=== PATIENT | male | born 1980 | race Caucasian/White ===

== ENCOUNTER 2017-02-04 10:07 | Emergency (ER) | payer OTHER ==
--- NOTE | ~2017-02-04 | EKG ---
PATIENT: JENNIFER PEREZ UNIT #: [id number] Ventricular Rate: 58 BPM Atrial Rate: 59 BPM P-R Interval: 150 ms QRS Duration: 94 ms Q-T Interval: 370 ms QTC Calculation(Bezet): 363 ms P [place]: 30 degrees Calculated R [place]: 17 degrees Calculated T [place]: 19 degrees Diagnosis Line: Sinus bradycardia Diagnosis Line: Otherwise normal ECG Diagnosis Line: No previous ECGs available Diagnosis Line: Confirmed by GREY SEVERINO MD ([id number]) on Diagnosis Line: 02/04/2017 9:36:26 PM INTERPRETING MD: GAIL
[~2017-02-04 10:07] MED LIST: FLEXERIL10 MG PO; MOTRIN600 MG PO; PAXIL PO; PREDNISONE10 MG/DOSE PO
[2017-02-04 10:43] LABS: ACETAMINOPHEN 17 ug/mL; ALKALINE PHOSPHATASE 43 U/L (32-92); ALT (SGPT) 26 U/L (10-40); AST (SGOT) 25 U/L (10-42); BILIRUBIN, DIRECT 0.1 mg/dL (0.0-0.2); BILIRUBIN,INDIRECT 0.6 mg/dL (0.0-0.9); BILIRUBIN,TOTAL 0.7 mg/dL (0.2-2.0); BLOOD UREA NITROGEN 11 mg/dL (9-23); CALCIUM SERUM 9.1 mg/dL (8.4-10.2); CARBON DIOXIDE 24 mmol/L (22-31); CHLORIDE 103 mmol/L (100-111); GLOM FILT RATE Estimated 97.8 mL/min (>60); GLUCOSE FASTING 99 mg/dL (70-110); POTASSIUM 3.7 mmol/L (3.5-5.1); PROTEIN TOTAL SERUM 6.7 g/dL (6.0-8.3); SALICYLATE <4.0 mg/dL; SODIUM 135 mmol/L (135-145)
[2017-02-04 10:45] LABS: ALCOHOL BLOOD <5 mg/dL (0)
[2017-02-04 12:36] LABS: AMPHETAMINE NEG (NEG); BARBITURATES NEG (NEG); BENZODIAZEPINES NEG (NEG); COCAINE NEG (NEG); MARIJUANA NEG (NEG); OPIATES POS (NEG); TRICYCLIC ANTIDEPRESSANTS NEG (NEG); U METHADONE NEG (NEG)
[2017-02-04 13:40] LABS: ACETAMINOPHEN <10 ug/mL; SALICYLATE <4.0 mg/dL
== END 2017-02-04 19:08 ==
LOC: CFTX 10:07
PROVIDERS: Emergency Medicine
DX: T40.2X2A Poisoning by other opioids, intentional self-harm, initial encounter (principal)
CPT/HCPCS: 80048; 80076; 80307; 93005; 99285; G0480